=== PATIENT | female | born 1965 | race Caucasian/White ===

== ENCOUNTER → 2023-06-10 08:00 | Outpatient (BNVA) | payer BC, SELFPAY | PROVIDERS: PCP Family Medicine Adult Medicine; Visit Provider Family Medicine Adult Medicine | DX: M81.0 Age-related osteoporosis without current pathological fracture (principal); E11.69 Type 2 diabetes mellitus with other specified complication; E78.5 Hyperlipidemia, unspecified; N95.1 Menopausal and female climacteric states; F32.A Depression, unspecified; I15.2 Hypertension secondary to endocrine disorders | CPT/HCPCS: 80053; 80061; 83036; 84443; 85025 ==

== ENCOUNTER → 2023-11-12 15:31 | Outpatient (BNVA) | payer BC, MEDICAID, SELFPAY | PROVIDERS: PCP Family Medicine Adult Medicine | DX: M19.041 Primary osteoarthritis, right hand (principal) | CPT/HCPCS: 73130 ==

== ENCOUNTER → 2023-12-21 14:17 | Outpatient (BNVA) | payer BC, MEDICAID, SELFPAY | PROVIDERS: PCP Family Medicine Adult Medicine; Visit Provider Nurse Practitioner Family | DX: M19.071 Primary osteoarthritis, right ankle and foot (principal); M25.774 Osteophyte, right foot | CPT/HCPCS: 73630 ==

== ENCOUNTER 2024-01-14 14:48 | Outpatient (CLI) | payer BC, MEDICAID, SELFPAY ==
--- NOTE | 2024-01-14 16:15 | USCV_ITS ---
Ricardo Farida Age: 58 Gender: F : 1965 Exam Date: 01/14/2024 15:17 Ordering Phys: Maria D Guan DO Technologist: CT [place]am [place] [facility] [place]: Risk Factors: Previous Vascular Surgery: RIGHT LEFT BP: 129.0 / 0.00 BP: 133.0/ 89.00 0 0 Waveform Velocity (cm/s) Velocity (cm/s) Waveform Triphasic 123.8 Iliac Prox Triphasic 121.7 Iliac Mid Triphasic 113.0 Iliac Distal Triphasic 107.0 MANAGER SEMICONDUCTOR Triphasic 104.0 SFA Prox Triphasic 92.0 SFA Mid Triphasic 73.0 SFA Dist Triphasic 40.0 POP Triphasic 46.0 BUILDING AND GROUNDS SUPERVISOR Triphasic 39.0 DPA 1.0 ARTIE FINDINGS Resting ARTIE 1.0 on the right side. Minimal thickening in the femoral and popliteal artery on the right side. Normal arterial Doppler waveforms and velocities. CONCLUSIONS 1. Normal resting ARTIE on the right side suggesting no significant arterial obstruction 2. Intimal thickening in the femoral and popliteal artery on the right side. No unstable lesions. Dr Tl Cruz MD [facility] (Electronically Signed) Final Date: 14 January 2024 18:30 S
== END 2024-01-14 14:49 | disposition home or self-care (01) ==
LOC: RAD 14:51
PROVIDERS: PCP Family Medicine Adult Medicine; Visit Provider Emergency Medicine
DX: E11.621 Type 2 diabetes mellitus with foot ulcer (principal); I70.201 Unspecified atherosclerosis of native arteries of extremities, right leg; L97.519 Non-pressure chronic ulcer of other part of right foot with unspecified severity
CPT/HCPCS: 93926

== ENCOUNTER → 2024-07-26 14:55 | Outpatient (BNVA) | payer BC, MEDICAID, SELFPAY | PROVIDERS: Family Provider Family Medicine; PCP Family Medicine; Visit Provider Family Medicine | DX: I15.2 Hypertension secondary to endocrine disorders (principal); E11.69 Type 2 diabetes mellitus with other specified complication; E78.5 Hyperlipidemia, unspecified; E11.8 Type 2 diabetes mellitus with unspecified complications; E03.9 Hypothyroidism, unspecified; M81.0 Age-related osteoporosis without current pathological fracture | CPT/HCPCS: 80053; 80061; 82043; 82306; 83036; 84439; 84443; 85025 ==

== ENCOUNTER 2024-08-25 13:40 | Inpatient (IN) | payer BC, SELFPAY ==
[2024-08-25 13:41] VITALS: BP 107/58; PULSE 98; RESP 16; TEMP 36.8; O2SAT 97; BMI 23.8
--- NOTE | 2024-08-25 13:43 | XRR_ITS ---
PROCEDURE INFORMATION: Exam: XR Chest Exam date and time: 08/25/2024 2:05 PM Age: 59 years old Clinical indication: Other: Weakness TECHNIQUE: Imaging protocol: Radiologic exam of the chest. Views: 1 view. COMPARISON: No relevant prior studies available. FINDINGS: Lungs: The lungs are incompletely inflated. No focal infiltrates. Pleural spaces: No effusion or pneumothorax. Heart/Mediastinum: Heart size is normal. Mediastinum is widened. Bones/joints: Unremarkable. XR/XR chest 1V portable [id number] IMPRESSION: 1. Mediastinal widening. The appearance could represent a tortuous, ectatic proximal aorta or mediastinal mass. Chest CT evaluation is recommended. 2. No other acute disease identified.
--- NOTE | 2024-08-25 13:46 | ED_ITS ---
HPI - Weakness 2 General: Chief complaint: Weakness Stated complaint: Weakness Time Seen by Provider: 08/25/24 13:40 History of Present Illness: 59-year-old female with a history of MGU S, blindness, hypothyroidism, hyperlipidemia, type 2 diabetes, diabetic neuropathy and hypertension who presents the emergency room by ambulance with weakness. She says she went to her doctor 3 days ago. After which she had an episode of vomiting and then since then she had exertional weakness. She says she can walk about a few steps and then she becomes extremely weak. She has no other complaints. She is having no abdominal pain. No further nausea or vomiting. No chest pain. No altered mental status. No focal motor deficits. No fevers. No cough. Related Data Home Medications ?Medication ?Instructions ?Recorded ?Confirmed insulin glargine 100 unit/mL (3 See Rx Instructions .R oute .COMPLEX 07/26/24 08/25/24 mL) subcutaneous pen (Lantus Solostar U-100 Insulin) alendronate 70 mg tablet 70 mg PO Q7D 08/25/24 insulin lispro 100 unit/mL See Rx Instructions .Route .COMPLEX 08/25/24 08/25/24 subcutaneous pen metformin 500 mg tablet,extended 1,000 mg PO BID 08/2508/25/24 release 24 hr venlafaxine 75 mg capsule,extended 75 mg PO QAM 08/25/24 release 24 hr Previous Rx's ?Medication ?Instructions ?Recorded glucagon HCl 1 mg solution for 1 mg SUBCUT Q20M PRN hy poglycemia 03/12/23 injection (Glucagon (HCl) #3 ea Emergency Kit) atorvastatin 10 mg tablet 10 mg PO DAILY #30 tabs 07/11 08/04 dulaglutide 4.5 mg/0.5 mL 4.5 mg (0.5 mL) SUBCUT .qwk #2 mL 07/26/24 subcutaneous [facility] gabapentin 100 mg capsule 100 mg PO TID #90 caps 07/26 levothyroxine 50 mcg tablet 50 mcg PO DAILY #30 tabs 0 07/26/24 loratadine 10 mg tablet 10 mg PO DAILY #30 tabs 07/11 08/04 losartan 100 mg tablet 100 mg PO DAILY #30 tabs quetiapine 50 mg tablet 50 mg PO DAILY #30 tabs 07/11 08/04 ergocalciferol (vitamin D2) 1,250 1,250 mcg PO .qwk #4 caps 07/29/24 mcg (50,000 unit) capsule Allergies Allergy/AdvReac Type Severity Reaction Status Date / Time No Known Allergies Allergy Verified 07/26/24 14:13 Review of Systems 2 Narrative: Constitutional symptoms: Negative except as documented in HPI. Skin symptoms: Negative except as documented in HPI. Eye symptoms: Negative except as documented in HPI. ENMT symptoms: Negative except as documented in HPI. Respiratory symptoms: Negative except as documented in HPI. Cardiovascular symptoms: Negative except as documented in HPI. Gastrointestinal symptoms: Negative except as documented in HPI. Genitourinary symptoms: Negative except as documented in HPI. Musculoskeletal symptoms: Negative except as documented in HPI. Neurologic symptoms: Negative except as documented in HPI. Psychiatric symptoms: Negative except as documented in HPI. Endocrine symptoms: Negative except as documented in HPI. PFSH ED 2 PFSH: Medical History (Updated 08/25/24 @ 16:27 by Latonia Angulo MD) MGUS (monoclonal gammopathy of unknown significance) per [facility] notes Contusion of right breast, initial encounter DJD (degenerative joint disease) Right hand pain Hypothyroidism (acquired) Fracture of neck of left femur 05/13/2022 tripped ground level/low trauma fall with Lt Hip Fx [facility] 07/11/2022 L-spine T-score q.t, Z-score 2.6; Rt Femur neck T -1.8, Z 0.2, Hx of left femoral neck fracture Blindness of both eyes DM, Hx retinal detachment, preretinal fibrosis, Vitamin D deficiency 10/03/2022 Vit D total 23 (30-100) Overactive bladder Postmenopausal disorder Hyperlipidemia associated with type 2 diabetes mellitus Anxiety and depression Allergic rhinitis due to allergen Diabetic neuropathy Hypertension 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, 10/03/2022 A1C 8.9; Goes to [facility] Endocrinology Surgical History (Updated 07/29/24 @ 14:58 by Mary Anne Garcia MD) History of hip surgery left juan Hx of colonoscopy done at [facility]--requesting records History of delivery Family History Father Heart disease Mother Diabetes Social History Smoking and tobacco/nicotine status: never used tobacco/nicotine Alcohol intake: never Substance/Drug Use: never Caregiver/support person: Yes Household members: spouse Marital status: Number of children: 1 Highest education level completed: High School Graduate Current occupational status: disabled Previous occupational history: housework only Physical Exam 2 Narrative: EXAM NARRATIVE: General: Alert, no acute distress. Skin: Warm, dry. Head: Normocephalic, atraumatic. Neck: Supple, trachea midline. Eye: Patient is blind Ears, nose, mouth and throat: mucosa moist. Cardiovascular: Regular, Normal peripheral perfusion. Respiratory: Lungs are clear to auscultation, respirations are non-labored, breath sounds are equal, Symmetrical chest wall expansion. Gastrointestinal: Soft, Nontender, Non distended Musculoskeletal: Normal ROM, no deformity. Neurological: Alert and oriented, No focal neurological deficit observed. Psychiatric: Cooperative, appropriate mood & affect. Course 2 Vital Signs: Vital signs: Vital Signs Temperature 98.2 F 08/25/24 13:41 Pulse Rate 93 08/25/24 15:02 Respiratory Rate 16 08/25/24 15:02 Blood Pressure 110/59 08/25/24 15:02 Pulse Oximetry 94 08/25/24 15:02 Oxygen Delivery Me thod Room Air 08/25/24 13:41 MDM - Weakness Medical Decision Making Medical decision making: Differential diagnosis for patient presenting with generalized weakness including but not limited to and based on the above HPI, review of systems and physical exam: Sepsis. Dehydration. Renal failure. Electrolyte abnormalities. Anemia. Congestive heart failure. Hypotension. Coronary syndrome. Hepatitis. Cirrhosis. Infections such as pneumonia, urinary tract infection, [place]ne illness, Cellulitis, Viral infections including influenza and Covid-19. Workup: labwork and lab/exam driven imaging ordered to evaluate, rule in and rule out above pathologies. EKG: Time 1403. Rate 96. Normal sinus rhythm, No ST-T changes, no ectopy, normal SD & QRS intervals, This was reviewed and interpreted by myself the ER physician at 1408 Chest x-ray: No acute process. No infiltrate. No pneumothorax. This was reviewed and interpreted by myself the emergency room physician. I also reviewed the radiology report. Lab Review: Laboratory results were reviewed and interpreted by myself the emergency room physician. No leukocytosis. No anemia. Renal function is quite elevated over baseline at 82 and 2.3. 4+ bacteria in the urine with no other signs of infection. I am giving Rocephin CT of the chest abdomen and pelvis without contrast: Abnormal mediastinum on chest x-ray was not seen on CT scan. Mildly dilated bile ducts but no signs of biliary obstruction or cholangitis. Lactic acid was negative I reviewed the patient's medical record. Reexamination: I spoke with her who says she has actually been throwing up for 3 days now. Patient said she just threw up once. Vitals remained stable. She has had no focal motor deficits. She does not seem overtly confused. Consultation: I spoke with Dr. Brunson who is on-call for the hospitalist service who agrees to admission. Assessment and plan: Renal failure Dehydration ?2 L normal saline bolus in the emergency room. Rocephin IV. -I discussed the patient with the hospitalist on-call who is admitting the patient. - Discussed findings and plan with patient. Answered any questions. - All laboratory values were reviewed and interpreted personally by myself, the ER physician - All imaging was reviewed and interpreted personally by myself, the ER physician. - Evaluation and treatment of this problem were appropriate in the emergency setting Lab Data 08/25/24 14:06 08/25/24 14:06 Radiology Impressions Chest X-Ray 08/25/24 13:43 IMPRESSION: 1. Mediastinal widening. The appearance could represent a tortuous, ectatic proximal aorta or mediastinal mass. Chest CT evaluation is recommended. 2. No other acute disease identified. Chest/Abdomen/Pelvis CT 08/25/24 14:42 IMPRESSION: 1. No evidence for mediastinal mass. 2. No acute disease in the thorax. 3. Coronary artery calcifications are present. IMPRESSION: 1. Probable gallbladder sludge. 2. No other acute disease in the abdomen or pelvis. Laboratory Results WBC 6.14 10^3/uL (3.29-11.43) 08/25/24 14:06 RBC 4.39 10^6/uL (3.85-5.65) 08/25/24 14:06 Hgb 12.80 g/dL (11.27-16.99) 08/25/24 14:06 Hct 38.6 % (36-47) 08/25/24 14:06 MCV 87.9 fl (85-98) 08/25/24 14:06 MCH 29.2 pg (27-33) 08/25/24 14:06 MCHC 33.2 g/dL (30-55) 08/25/24 14:06 RDW 12.8 % (12.1-15.1) 08/25/24 14:06 Plt Count 312 10^3/cmm (157-399) 08/25/24 14:06 MPV 11.6 fL (7.4-10.4) H 08/25/24 14:06 Neut % (Auto) 67.1 % 08/25/24 14:06 Lymph % (Auto) 22.5 % 08/25/24 14:06 [place] % (Auto) 8.6 % 08/25/24 14:06 Eos % (Auto) 0.5 % 08/25/24 14:06 Baso % (Auto) 0.8 % 08/25/24 14:06 Neut # (Auto) 4.12 10^3/uL (1.8-7.7) 08/25/24 14:06 Lymph # (Auto) 1.4 10^3/uL (0.8-4.8) 08/25/24 14:06 [place] # (Auto) 0.5 10^3/uL (0.2-0.9) 08/25/24 14:06 Eos # (Auto) 0.0 10^3/uL (0.0-0.8) 08/25/24 14:06 Baso # (Auto) 0.1 10^3/uL (0.0-0.1) 08/25/24 14:06 Nucleated RBC % (auto) 0 % 08/25/24 14:06 Nucleated RBCs # 0.0 /100WBC 08/25/24 14:06 Sodium 136 mmol/L (136-145) 08/25/24 14:06 Potassium 5.4 mmol/L (3.5-5.1) H 08/25/24 14:06 Chloride 97 mmol/L (98-107) L 08/25/24 14:06 Carbon Dioxide 23 mmol/L (22-29) 08/25/24 14:06 Anion Gap 21.4 (5-19) H 08/25/24 14:06 BUN 82 mg/dL (8-23) H* D 08/25/24 14:06 Creatinine 2.3 mg/dL (0.5-0.9) H 08/25/24 14:06 GFR Calculation 21.6 mL/min (90-130) L 08/25/24 14:06 Glucose 191 mg/dL (65-115) H 08/25/24 14:06 Calculated Osmolality 312 mOsm/kg (285-295) H 08/25/24 14:06 Lactic Acid 1.5 mmol/L (0.5-2.2) 08/25/24 14:06 Calcium 9.5 mg/dL (8.5-10.5) 08/25/24 14:06 Total Bilirubin 0.4 mg/dL (0.15-1.2) 08/25/24 14:06 AST 9 U/L (0-32) 08/25/24 14:06 ALT < 5 U/L (0-33) 08/25/24 14:06 Alkaline Phosphatase 97 U/L (35-105) 08/25/24 14:06 Troponin T Baseline 13 ng/L (0-10) H 08/25/24 14:06 Total Protein 7.0 g/dL (6.6-8.7) 08/25/24 14:06 Albumin 4.5 g/dL (3.5-5.2) 08/25/24 14:06 Globulin 2.5 g/dL (1.3-4.6) 08/25/24 14:06 Urine Color Yellow (Yellow) 08/25/24 14:00 Urine Appearance Clear (CLEAR) 08/25/24 14:00 Urine pH 5.0 (5-7) 08/25/24 14:00 Ur Specific [place] 1.021 (1.005-1.030) 08/25/24 14:00 Urine Protein 1+ (Negative) A 08/25/24 14:00 Urine Glucose (UA) 3+ (Normal) H 08/25/24 14:00 Urine Ketones 1+ (Negative) H 08/25/24 14:00 Urine Blood Negative (Negative) 08/25/24 14:00 Urine Nitrate Negative (Negative) 08/25/24 14:00 Urine Bilirubin Negative (Negative) 08/25/24 14:00 Urine Urobilinogen 1.0 mg/dL (Negative) 08/25/24 14:00 Ur Leukocyte Esterase Negative (Negative) 08/25/24 14:00 Urine RBC 0-2 /hpf (0-2) 08/25/24 14:00 Urine WBC 0-5 /hpf (0-5) 08/25/24 14:00 Ur Squamous Epith Cells 0-5 /hpf (0-5) 08/25/24 14:00 Amorphous Sediment Not Reportable 08/25/24 14:00 Urine Bacteria 3+ /hpf (NONE) H 08/25/24 14:00 Hyaline Casts 27.69 /lpf 08/25/24 14:00 Influenza A (PCR) Negative (Negative) 08/25/24 14:16 Influenza Type B (PCR) Negative (Negative) 08/25/24 14:16 RSV (PCR) Negative (Negative) 08/25/24 14:16 SARS-CoV-2 (PCR) Negative (Negative) 08/25/24 14:16 All radiology interpretation(s) finalized by discharge Discharge Plan Discharge Patient Disposition: Admitted As Inpatient Clinical Impression: Renal failure, Dehydration Condition: Stable Coding Level of Care Code ED Engine Watchman for Dayanara Fontento
--- NOTE | 2024-08-25 14:03 | ECG_ITS ---
[facility] Date: 2024[facility]25 Pat Name: Farida Silva Department: Room: Gender: Female Regional Account Executive: : 1965 Requested By: Latonia Daigle Order Number: [id number] Vanessa MD: Tl Cruz M.D. Measurements Intervals [place] Rate: 96 P: 59 [place]: 133 QRS: 5 QRSD: 83 T: 64 QT: 334 QTc: 423 Interpretive Statements SINUS RHYTHM No previous ECG available for comparison Electronically Signed On 08-25-2024 16:40:36 CDT by Tl Cruz M.D. [email or web address]
[2024-08-25 14:14] LABS: Glucose Urine UA 3+ (Normal); Nitrate Urine Negative (Negative); Specific Gravity, Urine 1.021 (1.005-1.030)
[2024-08-25 14:20] LABS: Hematocrit 38.6 % (36-47); Hemoglobin 12.80 g/dL (11.27-16.99); Mean Corpuscular HGB Conc 33.2 g/dL (30-55); Mean Corpuscular Hemoglobin 29.2 pg (27-33); Mean Corpuscular Volume 87.9 fl (85-98); Nucleated Red Blood Cells % 0 %; Platelet Count 312 10^3/cmm (157-399); Red Blood Count 4.39 10^6/uL (3.85-5.65); White Blood Count 6.14 10^3/uL (3.29-11.43)
[2024-08-25 14:30] LABS: Alanine Aminotransferase < 5 U/L (0-33); Albumin Level 4.5 g/dL (3.5-5.2); Alkaline Phosphatase 97 U/L (35-105); Anion Gap 21.4 (5-19); Aspartate Amino Transferase 9 U/L (0-32); Calcium 9.5 mg/dL (8.5-10.5); Carbon Dioxide 23 mmol/L (22-29); Chloride 97 mmol/L (98-107); Creatinine Clr Calc Pharmacy 26.5013; Globulin 2.5 g/dL (1.3-4.6); Glucose 191 mg/dL (65-115); Osmolality Calculated 312 mOsm/kg (285-295); Potassium 5.4 mmol/L (3.5-5.1); Sodium 136 mmol/L (136-145); Total Protein 7.0 g/dL (6.6-8.7)
[2024-08-25 14:31] LABS: Lactic Sepsis W/Reflex 1.5 mmol/L (0.5-2.2); Troponin(5th) Baseline 13 ng/L (0-10)
[2024-08-25 14:36] LABS: Blood Urea Nitrogen 82 mg/dL (8-23)
--- NOTE | 2024-08-25 14:42 | CTR_ITS ---
PROCEDURE INFORMATION: Exam: CT Chest Without Contrast; Diagnostic Exam date and time: 08/25/2024 3:24 PM Age: 59 years old Clinical indication: Condition or disease; Other: Renal failure; Other: Abnormal cxr; Prior surgery; Surgery date: 6+ months; Surgery type: Partial hysterectomy, left hip; Additional info: Renal failure, abnormal chest xray, R/O obstructive uropathy per hospitalist, TECHNIQUE: Imaging protocol: Diagnostic computed tomography of the chest without contrast. Radiation optimization: All CT scans at this facility use at least one of these dose optimization techniques: automated exposure control; mA and/or kV adjustment per patient size (includes targeted exams where dose is matched to clinical indication); or iterative reconstruction. COMPARISON: CR XR chest 1V portable [id number] 08/25/2024 2:05 PM RADIATION DOSE METRICS: Total DLP (mGy-cm): 725.27 FINDINGS: Lungs: Small amount of atelectasis in the right middle lobe, lingula and posterior lower lobes. Pleural spaces: Unremarkable. No pneumothorax. No pleural effusion. Heart: Heart size is normal. Coronary arteries: Coronary artery calcifications are present. Mediastinal space: No mediastinal mass or rich enlargement. The esophagus contains gas and fluid. Lymph nodes: Unremarkable. No enlarged lymph nodes. Vasculature: Ascending aorta caliber is within normal limits. Pulmonary artery size is normal. A small amount of gas in the main pulmonary artery relates to inadvertent injection during IV placement. Bones/joints: Degenerative disc disease is present in the thoracic spine. No suspicious osseous lesions. Soft tissues: Unremarkable. PROCEDURE INFORMATION: Exam: CT Abdomen And Pelvis Without Contrast Exam date and time: 08/25/2024 3:24 PM Age: 59 years old Clinical indication: Condition or disease; Other: Renal failure; Other: Abnormal cxr; Prior surgery; Surgery date: 6+ months; Surgery type: Partial hysterectomy, left hip; Additional info: Renal failure, abnormal chest xray, R/O obstructive uropathy per hospitalist, TECHNIQUE: Imaging protocol: Computed tomography of the abdomen and pelvis without contrast. Radiation optimization: All CT scans at this facility use at least one of these dose optimization techniques: automated exposure control; mA and/or kV adjustment per patient size (includes targeted exams where dose is matched to clinical indication); or iterative reconstruction. COMPARISON: CR XR chest 1V portable [id number] 08/25/2024 2:05 PM RADIATION DOSE METRICS: Total DLP (mGy-cm): 725.27 FINDINGS: Liver: Normal. No mass. Gallbladder and biliary ducts: Slight relative increased density in the dependent portion of the gallbladder suggests sludge. No calcified stones. No pericholecystic inflammatory changes. No ductal dilatation. Pancreas: Normal. No ductal dilation. Spleen: Normal. No splenomegaly. Adrenal glands: Normal. No mass. Kidneys and ureters: Normal. No hydronephrosis. Stomach and bowel: Unremarkable. No obstruction. No mucosal thickening. Appendix: No evidence of appendicitis. Intraperitoneal space: Unremarkable. No free air. No significant fluid collection. Vasculature: Unremarkable. No abdominal aortic aneurysm. Lymph nodes: Unremarkable. No enlarged lymph nodes. Urinary bladder: Unremarkable as visualized. Reproductive: Vascular calcification projects around the uterus periphery. No uterus mass or adnexal mass. Bones/joints: Unremarkable. No acute fracture. Previous left hip replacement. Soft tissues: Unremarkable. CT/[place] [id number] IMPRESSION: 1. No evidence for mediastinal mass. 2. No acute disease in the thorax. 3. Coronary artery calcifications are present. IMPRESSION: 1. Probable gallbladder sludge. 2. No other acute disease in the abdomen or pelvis.
[2024-08-25 14:59] LABS: Respiratory Syncytial Virus Ce NEGATIVE (Negative); SARS-CoV-2 PCR NEGATIVE (Negative)
[2024-08-25] MEDS: cefTRIAXone 1,000 mg SDV 1000 MG IVP (15:01)
[2024-08-25 15:02] VITALS: BP 110/59; PULSE 93; RESP 16; O2SAT 94
--- NOTE | 2024-08-25 16:08 | ECG_ITS ---
[facility] Date: 2024-08-25 Pat Name: Farida Silva Department: Room: Gender: Female Film Crew Member: : 1965 Requested By: Latonia Daigle Order Number: [id number] Vanessa MD: Tl Cruz M.D. Measurements Intervals [place] Rate: 89 P: 57 ND: 136 QRS: -4 QRSD: 85 T: 67 QT: 357 QTc: 435 Interpretive Statements SINUS RHYTHM NONSPECIFIC T-WAVE ABNORMALITY Compared to ECG 08/25/2024 14:03:09 T-wave abnormality now present Electronically Signed On 08-25-2024 16:47:59 CDT by Tl Cruz M.D. [email or web address]
--- NOTE | 2024-08-25 16:48 | P.HP_ITS ---
Providers/Chief Complaint 2 Primary Care Provider: Mary Anne Garcia MD Chief Complaint: Weakness History of Present Illness Farida Silva is a 59 year old female with past medical history of diabetes mellitus, peripheral neuropathy, hypothyroidism, depression, hyperlipidemia, hypertension who presented to the hospital today for complaint of feeling very weak. She states that she has not had any urine output since yesterday. She started vomiting suddenly 2 days ago she states and has worsened. Has not vomited since yesterday however still feels very weak. Patient is legally blind and is accompanied by her . Has a history of retinal detachment and diabetic retinopathy leading to blindness. She says she went to her doctor on and thereafter started experiencing nausea vomiting. No clear trigger. Did not eat out, denies eating canned food or visiting a restaurant. Says everything was normal at home. Denies chest pain shortness of breath abdominal pain diarrhea. Has been anuric since yesterday. Patient is legally blind and will require assistance with feeding. Medications/Allergies Home Medications ?Medication ?Instructions ?Recorded ?Confirmed ?Last Taken ?Type glucagon HCl 1 mg solution for 1 mg SUBCUT Q20M PRN hy poglycemia 03/12/23 08/25/24 Unknown Rx injection (Glucagon (HCl) #3 ea Emergency Kit) atorvastatin 10 mg tablet 10 mg PO DAILY #30 tabs 07/1108/25/24 08/24/24 Rx dulaglutide 4.5 mg/0.5 mL 4.5 mg (0.5 mL) SUBCUT .qwk #2 mL 07/26/24 08/25/24 Unknown Rx subcutaneous pen injector (Trulicity) gabapentin 100 mg capsule 100 mg PO TID #90 caps 07/2608/25/24 08/25/24 Rx insulin glargine 100 unit/mL (3 See Rx Instructions .R oute .COMPLEX 07/26/24 08/25/24 08/25/24 History mL) subcutaneous pen (Lantus Solostar U-100 Insulin) levothyroxine 50 mcg tablet 50 mcg PO DAILY #30 tabs 0 07/26/24 08/25/24 08/25/24 Rx loratadine 10 mg tablet 10 mg PO DAILY #30 tabs 06/1 6/25 07/16/25 07/16/25 Rx losartan 100 mg tablet 100 mg PO DAILY #30 tabs 08/25/24 08/25/24 Rx quetiapine 50 mg tablet 50 mg PO DAILY #30 tabs 07/1108/25/24 08/25/24 Rx ergocalciferol (vitamin D2) 1,250 1,250 mcg PO .qwk #4 caps 07/29/24 08/25/24 Unknown Rx mcg (50,000 unit) capsule alendronate 70 mg tablet 70 mg PO Q7D 08/25/2408/20/24 History insulin lispro 100 unit/mL See Rx Instructions .Route .COMPLEX 08/25/24 08/25/24 08/25/24 History subcutaneous pen metformin 500 mg tablet,extended 1,000 mg PO BID 08/2508/25/24 08/25/24 History release 24 hr venlafaxine 75 mg capsule,extended 75 mg PO QAM 08/25/24 08/25/24 History release 24 hr Allergies Allergy/AdvReac Type Severity Reaction Status Date / Time No Known Allergies Allergy Verified 07/26/24 14:13 PFSH Acute 2 PFSH: Medical History (Updated 08/25/24 @ 18:06 by Giulia Brunson MD) MGUS (monoclonal gammopathy of unknown significance) per [facility] notes Contusion of right breast, initial encounter DJD (degenerative joint disease) Right hand pain Hypothyroidism (acquired) Fracture of neck of left femur 05/13/2022 tripped ground level/low trauma fall with Lt Hip Fx Osteoporosis [facility] - [facility] 07/11/2022 L-spine T-score q.t, Z-score 2.6; Rt Femur neck T -1.8, Z 0.2, Hx of left femoral neck fracture Blindness of both eyes DM, Hx retinal detachment, preretinal fibrosis, Vitamin D deficiency 10/03/2022 Vit D total 23 (30-100) Overactive bladder Postmenopausal disorder Hyperlipidemia associated with type 2 diabetes mellitus Anxiety and depression Allergic rhinitis due to allergen Diabetic neuropathy Hypertension 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, 10/03/2022 A1C 8.9; Goes to [facility] Endocrinology Surgical History (Updated 07/29/24 @ 14:58 by Mary Anne Garcia MD) History of hip surgery left juan Hx of colonoscopy done at [facility]--requesting records History of delivery Family History Father Heart disease Mother Diabetes Social History Smoking and tobacco/nicotine status: never used tobacco/nicotine Alcohol intake: never Substance/Drug Use: never Caregiver/support person: Yes Household members: spouse Marital status: Number of children: 1 Highest education level completed: High School Graduate Current occupational status: disabled Previous occupational history: housework only Vitals/I&O/Wt Last Vital Signs Temp 98.2 F 08/25/24 13:41 Pulse 93 08/25/24 15:02 Resp 16 08/25/24 15:02 BP 110/59 08/25/24 15:02 Pulse Ox 94 08/25/24 15:02 O2 Del Method Room Air 08/25/24 13:41 Weight last 48 hrs Weight 68.946 kg Physical Exam 2 Narrative: General: Alert oriented x3, patient seen laying in bed appearing comfortable at this time. Patient appears quite dehydrated dry mucous membranes. HEENT: Normocephalic, atraumatic, EOMI, patient legally blind. Cardio: Regular rate rhythm, normal S1-S2, Respiratory: Clear to auscultation bilaterally no wheezes no rhonchi GI: Abdomen soft, nontender bowel sounds + Extremities: No edema bilateral lower extremity Data 08/25/24 14:06 08/25/24 14:06 Micro: Microbiology 08/25/24 14:00 Blood Culture - Preliminary Blood SPECIMEN COLLECTED 08/25/24 14:06 Blood Culture - Preliminary Blood SPECIMEN COLLECTED A&P Assessment and plan 1. Anxiety and depression: 2. Hypertension: 3. Hyperlipidemia associated with type 2 diabetes mellitus: 4. Hypothyroidism (acquired): 5. Blindness of both eyes: 6. Dehydration: 7. Acute renal failure, unspecified acute renal failure type: 8. MGUS (monoclonal gammopathy of unknown significance): 9. Diabetic neuropathy: 10. High anion gap metabolic acidosis: 11. Hyperkalemia: Plan: #Acute renal failure #Anuric #Diabetes mellitus insulin-dependent #Nausea vomiting #Hyperlipidemia #Hypothyroidism #Anxiety depression #Peripheral neuropathy #MGUS -Patient is status post 2 normal saline bolus ? Continue on LR at 125 cc/h ? Consult nephrology ? Creatinine 2.3, BUN 83, potassium 5.4 ? Patient anuric. ? We will administer IV fluids and see if she responds to fluid and is able to urinate. ? Delta troponin at 2 hours -3.56. ? UA positive for 3+ bacteria, 1+ protein, 3+ glucose 1+ ketones. ? Will check for serum ketones. There may be possibility of euglycemic DKA however patient is not on SGLT2. She is on a GLP-1 analog dulaglutide however. This may contribute to nausea vomiting. ? Will check ABG ? Anion gap elevated most likely secondary to renal failure. Bicarb 23. ? Potassium 5.4. ? Check TSH, SPEP, UPEP check MEREDITH, serum ketones, complement C3-C4, CPK, hepatitis profile, uric acid ? Check urine sodium ? Heparin SQ twice daily for DVT prophylaxis ? Continue quetiapine, venlafaxine, levothyroxine ? Hold off on insulin at this time secondary to renal failure status. ? Patient is at risk of hypoglycemia. ?Check stat ABG to assess for pH. - Nephrology consulted. Appreciate recommendations ? Place Lopez catheter for accurate output ? Patient does have a history of MGUS. Query myeloma crisis?. Nephrology has repeated labs. Full code DVT prophylaxis: Heparin SQ twice daily PDMP PDMP Reviewed: Not Reviewed Attestations 2 Medical Necessity Statement*: Greater than 2 midnight stay for management of acute renal failure. Diagnoses Anxiety and depression F41.9; F32.A Hypertension I10 Hyperlipidemia associated with type 2 diabetes mellitus E11.69; E78.5 Hypothyroidism (acquired) E03.9 Blindness of both eyes H54.3 Dehydration E86.0 Acute renal failure, unspecified acute renal failure type N17.9 Acute renal failure type: unspecified Renal failure chronicity: acute MGUS (monoclonal gammopathy of unknown significance) D47.2 Diabetic neuropathy E11.40 High anion gap metabolic acidosis E87.29 Hyperkalemia E87.5
[2024-08-25 16:59] LABS: Troponin 5 2HR 9.44 ng/L (0-10)
[2024-08-25 17:02] LABS: Troponin 5 2HR Delta -3.56 ABS# (0-10)
[2024-08-25 17:06] VITALS: BP 129/62; PULSE 89; RESP 22; O2SAT 98
[2024-08-25] MEDS: pantoprazole 40 mg SDV IVP (17:31)
--- NOTE | 2024-08-25 17:31 | PC.NURSE ---
maintenance fluids delayed d/t current fluid bolus infusing
--- NOTE | 2024-08-25 17:39 | PC.NURSE ---
pt spoke with nephrology via telecare @[id number]
--- NOTE | 2024-08-25 17:40 | PM.CONSULT ---
Providers/Reason For Consult Consulting Physician/Specialty*: Bertin Allen MD/telenephrology Reason for Consult*: ATA Requesting Physician: Giulia Brunson MD Attending Physician: Giulia Brunson MD Primary Care Provider: Mary Anne Garcia MD History of Present Illness History of Present Illness Farida Silva is a 59 year old female history of diabetes mellitus, hyperlipidemia and hypothyroidism, hypertension, anxiety depression. Patient is blind in both eyes. Patient per chart has a history history of a MGUS. Patient is here with nausea vomiting for 3 days. In the emergency room patient was found to have acute kidney injury. Patient has CT scan of chest abdomen and pelvis. Lungs had small amount of atelectasis in right middle lobe lingula and posterior lobes. She was found to have gallbladder sludge. She had normal kidneys. The patient had mild hypotension blood pressure 107/58. And renal is called to see the patient for acute kidney injury Review of Systems Narrative: Nausea vomiting weakness for a few days not able to eat. She is taking her medications including metformin and losartan and insulin. She has very poor vision or is legally blind. She is denying diarrhea. Medications/Allergies Home Medications ?Medication ?Instructions ?Recorded ?Confirmed ?Last Taken ?Type glucagon HCl 1 mg solution for 1 mg SUBCUT Q20M PRN hypoglycemia 03/12/23 08/25/24 Unknown Rx injection (Glucagon (HCl) #3 ea Emergency Kit) atorvastatin 10 mg tablet 10 mg PO DAILY #30 tabs 07/26/24 08/25/24 08/24/24 Rx dulaglutide 4.5 mg/0.5 mL 4.5 mg (0.5 mL) SUBCUT .qwk #2 mL 07/26/24 08/25/24 Unknown Rx subcutaneous pen injector (Trulicity) gabapentin 100 mg capsule 100 mg PO TID #90 caps 07/26/24 08/25/24 08/25/24 Rx insulin glargine 100 unit/mL (3 See Rx Instructions .Route .COMPLEX 07/26/24 08/25/24 08/25/24 History mL) subcutaneous pen (Lantus Solostar U-100 Insulin) levothyroxine 50 mcg tablet 50 mcg PO DAILY #30 tabs 07/26/24 08/25/24 08/25/24 Rx loratadine 10 mg tablet 10 mg PO DAILY #30 tabs 07/26/24 08/25/24 08/25/24 Rx losartan 100 mg tablet 100 mg PO DAILY #30 tabs 07/26/24 08/25/24 08/25/24 Rx quetiapine 50 mg tablet 50 mg PO DAILY #30 tabs 07/26/24 08/25/24 08/25/24 Rx ergocalciferol (vitamin D2) 1,250 1,250 mcg PO .qwk #4 caps 07/29/24 08/25/24 Unknown Rx mcg (50,000 unit) capsule alendronate 70 mg tablet 70 mg PO Q7D 08/25/24 08/25/24 08/20/24 History insulin lispro 100 unit/mL See Rx Instructions .Route .COMPLEX 08/25/24 08/25/24 08/25/24 History subcutaneous pen metformin 500 mg tablet,extended 1,000 mg PO BID 08/25/24 08/25/24 08/25/24 History release 24 hr venlafaxine 75 mg capsule,extended 75 mg PO QAM 08/25/24 08/25/24 08/25/24 History release 24 hr Allergies Allergy/AdvReac Type Severity Reaction Status Date / Time No Known Allergies Allergy Verified 07/26/24 14:13 Current Medications Generic Name Dose Route Start Last Admin Trade Name Nigelq PRN Reason Stop Dose Admin Pantoprazole Sodium 40 mg 08/25/24 17:00 08/25/24 17:31 Pantoprazole 40 Mg Sdv IVP 40 mg Q24H KADEN Administration PFSH Acute PFSH: Medical History (Updated 08/25/24 @ 17:46 by Bertin Allen MD) MGUS (monoclonal gammopathy of unknown significance) per [facility] notes Contusion of right breast, initial encounter DJD (degenerative joint disease) Right hand pain Hypothyroidism (acquired) Fracture of neck of left femur 05/13/2022 tripped ground level/low trauma fall with Lt Hip Fx Osteoporosis [facility] - [facility] 07/11/2022 L-spine T-score q.t, Z-score 2.6; Rt Femur neck T -1.8, Z 0.2, Hx of left femoral neck fracture Blindness of both eyes DM, Hx retinal detachment, preretinal fibrosis, Vitamin D deficiency 10/03/2022 Vit D total 23 (30-100) Overactive bladder Postmenopausal disorder Hyperlipidemia associated with type 2 diabetes mellitus Anxiety and depression Allergic rhinitis due to allergen Diabetic neuropathy Hypertension 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, 10/03/2022 A1C 8.9; Goes to [facility] Endocrinology Surgical History (Updated 07/29/24 @ 14:58 by Mary Anne Garcia MD) History of hip surgery left juan Hx of colonoscopy done at [facility]--requesting records History of delivery Family History Father Heart disease Mother Diabetes Social History Smoking and tobacco/nicotine status: never used tobacco/nicotine Alcohol intake: never Substance/Drug Use: never Caregiver/support person: Yes Household members: spouse Marital status: Number of children: 1 Highest education level completed: High School Graduate Current occupational status: disabled Previous occupational history: housework only Vitals/I&O/Wt Last Vital Signs Temp 98.2 F 08/25/24 13:41 Pulse 89 08/25/24 17:06 Resp 22 H 08/25/24 17:06 BP 129/62 08/25/24 17:06 Pulse Ox 98 08/25/24 17:06 O2 Del Method Room Air 08/25/24 13:41 Weight last 48 hrs Weight 68.946 kg Physical Exam Narrative: Vital signs noted. Currently normal. Patient is comfortable in bed no apparent distress. HEENT normocephalic atraumatic. Poor vision. Neck is supple no JVP. Lungs are clear to auscultation. Heart is regular no rubs or gallops. Abdomen is soft positive bowel sounds. Extremities no edema. Neuro awake alert oriented x 3. Data 08/25/24 14:06 08/25/24 14:06 Micro: Microbiology 08/25/24 14:00 Blood Culture - Preliminary Blood SPECIMEN COLLECTED 08/25/24 14:06 Blood Culture - Preliminary Blood SPECIMEN COLLECTED A&P Assessment and plan 1. Acute renal failure, unspecified acute renal failure type: 59-year-old lady with history of MGUS, blindness, hypothyroidism, hyperlipidemia, type 2 diabetes with diabetic neuropathy. Patient is here with nausea and vomiting and acute kidney injury. 1. Acute kidney injury-no hydronephrosis on CT scan. Baseline creatinine 0.6 mg/dL Urinalysis has a pH of 5, 1+ protein 3+ glucose 1+ ketones. Has 3+ urine bacteria. Patient has underlying urine microalbumin creatinine ratio 65 in July 2024. I am concerned for prerenal azotemia versus ATN. Will give IV fluids and monitor. Will send urine electrolytes. Will check CPK and check complements. Will stop ARB and metformin. 2. Uncontrolled diabetes. Treatment as per hospitalist. 3. Mild hyperkalemia we will monitor with treatment with IV fluids. 4. Anion gap of 16 with urine ketones positive will check an ABG. Patient's lactate is 1.5. Glucose 191 unlikely to be DKA unless she is on an SGLT2 inhibitor. We do not see any SGLT2 inhibitors on her medication list. Patient denies alcohol use. Evaluate for starvation ketoacidosis as she has been vomiting for 3 days. 5. History of MGUS will check serum protein electrophoresis immunofixation and free light chains. The pt was seen and examined with the aide of a RN using A/V equipment the pt consented to tele-health visit Plan: See above. PDMP PDMP Reviewed: Not Reviewed Consult Attestations Medical Necessity Statement: Nausea vomiting and acute kidney injury. Time Spent in Patient Care: Greater than 35 minutes (>than 50% of time spent in counselling and/or direct pt care on unit). Coding Level of Care Code Acute Code for Chg Fwd Diagnoses Acute renal failure, unspecified acute renal failure type N17.9 Renal failure chronicity: acute Acute renal failure type: unspecified
[2024-08-25 17:47] LABS: Procalcitonin 0.15 ng/mL (0-0.5)
[2024-08-25 17:52] VITALS: BP 117/60; PULSE 88; O2SAT 97
[2024-08-25 18:07] LABS: ABG PCO2 34.7 mmHg (35-45); ABG PH Result 7.38 (7.35-7.45); Alveolar-Arterial Oxygen Gradi 2.9 mmHg (5-10); Arterial Blood Gas Hematocrit 31.5 % (37-47); Blood Gas Operator Identificat GD; Blood Gas Sample Site Brachial, right; Blood Gas Sample Type Arterial; Carboxyhemoglobin 2.6 %THgb (0.4-20.1); Glucose Level-ABG 72.0 mg/dL (70-115); HCO3 ABG 20.5 mmol/L (22-26); Ionized Calcium Level - ABG 1.1 mmol/L (1.1-1.4); Methemoglobin 1.3 % (0.4-1.5); Oxygen Saturation ABG 95.8; PO2 ABG 83.1 mmHg (80.0-100.0); PO2 FiO2 Ratio Arterial Blood 395; Potassium Level - ABG 3.7 mmol/L (3.5-5.0); Sodium Level - ABG 142.0 mmol/L (131-143)
--- NOTE | 2024-08-25 18:12 | US_ITS ---
WS: [id number] Complete ABDOMINAL ULTRASOUND HISTORY: r/o gall bladder pathology COMPARISON: CT 08/25/2024 Liver: 14.3 cm in length. Normal size liver and echogenicity. No bile duct dilatation or mass. Portal Vein: Normal hepatopetal flow with monophasic waveform. Gallbladder: Normally distended gallbladder with no stones or wall thickening. CBD: 0.5 cm Pancreas: Normal size and echogenicity. Right kidney: 10.7 cm x 5.2 x 5.1 cm. Cortex:1.7 cm. Normal size kidney. Tiny cortical cyst. No solid mass. Left kidney: 11.3 cm x 6.1 cm x 6.0 cm. Cortex: 1.7 cm. Normal size and echogenicity. No hydronephrosis or mass. Spleen: 9.0 cm. Normal size and echogenicity. Aorta and IVC: Unremarkable abdominal aorta and IVC. US/US abdomen complete* [id number] Impression: 1. Negative gallbladder. No stones or sludge. 2. Normal common bile duct. 3. No renal obstruction. 4. Normal liver.
[2024-08-25] MEDS: heparin 5,000 unit/mL INJ 1 mL 5000 UNIT SUBCUT (18:20)
[2024-08-25 18:55] LABS: Uric Acid 13.2 mg/dL (2.4-5.7)
[2024-08-25 19:05] LABS: Thyroid Stimulating Hormone 1.42 uIU/mL (0.27-4.20)
[2024-08-25 19:36] VITALS: BP 145/74; PULSE 90; RESP 18; TEMP 36.4; O2SAT 95
--- NOTE | 2024-08-25 19:43 | ECG_ITS ---
[facility]24[facility]25 Pat Name: Farida Silva Department: Room: 271 Gender: Female System Programmer: : 1965 Requested By: Latonia Daigle Order Number: [id number] Reading MD: TIANA UNGER Measurements Intervals [place] Rate: 88 P: 49 MN: 120 QRS: -28 QRSD: 90 T: 75 QT: 372 QTc: 451 Interpretive Statements SINUS RHYTHM BORDERLINE LEFT AXIS DEVIATION [QRS AXIS < -20] NONSPECIFIC T-WAVE ABNORMALITY Compared to ECG 08/25/2024 16:08:06 No significant changes Electronically Signed On 08-28-2024 16:13:02 CDT by TIANA UNGER [email or web address]
[2024-08-25 22:20] LABS: Ketone (Acetest) Serum Negative (Negative)
[2024-08-25 22:23] LABS: Troponin 5 6HR 8.68 ng/L (0-10)
[2024-08-25 22:27] LABS: Troponin 5 6HR Delta -4.32 ng/L (0-12)
[2024-08-26] VITALS: BP 146/71; PULSE 92; RESP 16; TEMP 36.7; O2SAT 97
[2024-08-26 00:50] LABS: Glucose Urine UA Negative (Normal); Nitrate Urine Negative (Negative); Specific Gravity, Urine 1.014 (1.005-1.030)
[2024-08-26 01:01] LABS: Potassium, Radom Urine 16 mmol/L; Urine Random Chloride 141 mmol/L; Urine Random Sodium 135 mmol/L
[2024-08-26 04:00] VITALS: BP 125/67; PULSE 91; RESP 16; TEMP 36.4; O2SAT 95
[2024-08-26] MEDS: heparin 5,000 unit/mL INJ 1 mL 5000 UNIT SUBCUT ×2 (05:06→17:25)
[2024-08-26] MEDS: venlafaxine ER (24HR) 75 mg Capsule PO (05:06)
[2024-08-26 05:52] LABS: Hematocrit 33.3 % (36-47); Hemoglobin 10.90 g/dL (11.27-16.99); Mean Corpuscular HGB Conc 32.7 g/dL (30-55); Mean Corpuscular Hemoglobin 28.8 pg (27-33); Mean Corpuscular Volume 88.1 fl (85-98); Nucleated Red Blood Cells % 0 %; Platelet Count 234 10^3/cmm (157-399); Red Blood Count 3.78 10^6/uL (3.85-5.65); White Blood Count 4.06 10^3/uL (3.29-11.43)
[2024-08-26 06:15] LABS: Alanine Aminotransferase < 5 U/L (0-33); Albumin Level 3.6 g/dL (3.5-5.2); Alkaline Phosphatase 80 U/L (35-105); Anion Gap 17.7 (5-19); Aspartate Amino Transferase 9 U/L (0-32); Blood Urea Nitrogen 45 mg/dL (8-23); Calcium 8.4 mg/dL (8.5-10.5); Carbon Dioxide 23 mmol/L (22-29); Chloride 102 mmol/L (98-107); Creatinine Clr Calc Pharmacy 60.4388; Globulin 2.6 g/dL (1.3-4.6); Glucose 141 mg/dL (65-115); Magnesium 2.0 mg/dL (1.7-2.3); Osmolality Calculated 302 mOsm/kg (285-295); Potassium 3.7 mmol/L (3.5-5.1); Sodium 139 mmol/L (136-145); Total Protein 6.2 g/dL (6.6-8.7)
[2024-08-26 07:36] VITALS: BP 147/74; PULSE 88; RESP 18; TEMP 36.6; O2SAT 96
[2024-08-26] MEDS: ATORVASTATIN 10 MG TABLET PO (08:37)
--- NOTE | 2024-08-26 10:17 | P.PN_ITS ---
Subjective 2 Subjective: The patient was seen and examined. The patient had a Lopez catheter placed I believe she had a significant postvoid residual. Please ensure. Patient states she is feeling better. She has no nausea or vomiting she still remains weak. She has no diarrhea no headaches. Medications: Reviewed: Yes Medication Review Details: Current Medications Acetaminophen (Acetaminophen 325 Mg Tablet) 650 mg PO Q6H PRN PRN Reason: Mild/Mod Pain Or Temp >/= 101 Atorvastatin Calcium (Atorvastatin 10 Mg Tablet) 10 mg PO DAILY [facility] Last Admin: 08/26/24 08:37 Dose: 10 mg Glucagon (Glucagon 1 Mg/Ml Kit 1 Ml) 1 mg IM ONCE PRN; Protocol PRN Reason: Adult Acute Hypoglycemia Nursing Prot. Heparin Sodium (Porcine) (Heparin 5,000 Unit/Ml Inj 1 Ml) 5,000 unit SUBCUT Q12H [facility] Last Admin: 08/26/24 05:06 Dose: 5,000 unit Lactated Ringer's (Lactated Ringers) 1,000 mls @ 100 mls/hr IV .Q10H [facility] Last Admin: 08/26/24 05:05 Dose: 100 mls/hr Dextrose (D5w) 500 mls @ 0 mls/hr IV ONCE PRN; Protocol PRN Reason: Adult Acute Hypoglycemia Prot Dextrose (D10w) 125 mls @ 750 mls/hr IV PRN PRN; Protocol PRN Reason: Adult Acute Hypoglycemia Nursing Protocol Dextrose (D10w) 250 mls @ 1,000 mls/hr IV PRN PRN; Protocol PRN Reason: Adult Acute Hypoglycemia Nursing Protocol Levothyroxine Sodium (Levothyroxine 50 Mcg Tablet) 50 mcg PO DAILY [facility] Last Admin: 08/26/24 08:37 Dose: 50 mcg Ondansetron HCl (Ondansetron 2 Mg/Ml Sdv 2 Ml) 4 mg IVP Q8H PRN PRN Reason: vomiting, or N/V if npo Pantoprazole Sodium (Pantoprazole 40 Mg Sdv) 40 mg IVP Q24H [facility] Last Admin: 08/25/24 17:31 Dose: 40 mg Quetiapine Fumarate (Quetiapine 25 Mg Tablet) 50 mg PO BEDTIME [facility] Last Admin: 08/26/24 02:21 Dose: 50 mg Venlafaxine HCl (Venlafaxine Er (24hr) 75 Mg Capsule) 75 mg PO QAM [facility] Last Admin: 08/26/24 05:06 Dose: 75 mg Vitals/I&O/Wt Last Vital Signs Temp 97.9 F 08/26/24 07:36 Pulse 88 08/26/24 07:36 Resp 18 08/26/24 07:36 BP 147/74 08/26/24 07:36 Pulse Ox 96 08/26/24 07:36 O2 Del Method Room Air 08/26/24 07:36 08/25/24 08/26/24 08/26/24 22:59 06:59 14:59 Intake Total 2500 / 2500 900 / 3400 50 / 50 Output Total 900 / 900 1000 / 1900 Balance 1600 / 1600 -100 / 1500 50 / 50 Weight last 48 hrs Weight 67.585 kg Weight 68.946 kg Physical Exam 2 Narrative: Vital signs noted. Patient is comfortable in bed no apparent distress. HEENT normocephalic atraumatic. Poor vision. Neck is supple no JVP. Lungs are clear to auscultation. Heart is regular no rubs or gallops. Abdomen is soft positive bowel sounds. Extremities no edema. Neuro awake alert oriented x 3. Urinary Catheter Management: Lopez: Cath Placed During This Visit: yes Reason for Continuing Indwelling Catheter: Required Immobilization for Trauma or Surgery or Anesthesia Urinary Catheter Date of Insertion: 08/25/24 Urinary Catheter Time of Insertion: 20:20 Data 08/26/24 05:27 08/26/24 05:27 Micro: Microbiology 08/25/24 14:00 Blood Culture - Preliminary Blood SPECIMEN COLLECTED 08/25/24 14:06 Blood Culture - Preliminary Blood SPECIMEN COLLECTED A&P Assessment and plan 1. Acute renal failure, unspecified acute renal failure type: 59-year-old lady with history of MGUS, blindness, hypothyroidism, hyperlipidemia, type 2 diabetes with diabetic neuropathy. Patient is here with nausea and vomiting and acute kidney injury. 1. Acute kidney injury-no hydronephrosis on CT scan. Baseline creatinine 0.6 mg/dL Urinalysis has a pH of 5, 1+ protein 3+ glucose 1+ ketones. Has 3+ urine bacteria. Patient has underlying urine microalbumin creatinine ratio 65 in July 2024. Renal function improved. Likely prerenal azotemia as the patient did not have hydronephrosis on CT scan or renal ultrasound. Imaging of kidneys reviewed, on renal ultrasound, right kidney 10.7 cm left kidney 11.3 cm no hydronephrosis. Patient had an elevated urine sodium is consistent with ATN however she improved quickly with IV fluids Will stop ARB and metformin. Will DC IV fluids 2. Uncontrolled diabetes. Hemoglobin A1c was 9 last month Treatment as per hospitalist. 3. Mild hyperkalemia has improved potassium is now down to 3.7 4. Please note the patient had urinalysis with 1+ ketones on admission repeat had trace ketones. - However serum bicarbonate is 23. Yesterday she had a anion gap of 16 today she has an anion gap of 14 and serum albumin is 3.6. 5. History of MGUS will check serum protein electrophoresis immunofixation and free light chains. Follow-up repeat SPEP. As renal function improved this is unlikely to be amyloid or myeloma kidney The patient will need to have her Lopez catheter removed at that time please do a trial of void and ensure that she is urinating well. And renal function is stable. The pt was seen and examined with the aide of a RN using A/V equipment the pt consented to tele-health visit renal will see PRN Plan: See above. PDMP PDMP Reviewed: Not Reviewed Attestations 2 Medical Necessity Statement*: per hospitalist Time Spent in Patient Care: 16 - 35 minutes (>than 50% of time sp ent in counselling and/or direct pt care on unit) . Coding Level of Care Code Acute Code for Chg Fwd Diagnoses Acute renal failure, unspecified acute renal failure type N17.9 Acute renal failure type: unspecified Renal failure chronicity: acute
[2024-08-26 11:38] VITALS: BP 159/69; PULSE 88; RESP 17; TEMP 36.8; O2SAT 93
--- NOTE | 2024-08-26 14:14 | P.PN_ITS ---
Subjective 2 Subjective: Creatinine improved to 1.0. Patient is feeling better. Has had good urine output and Lopez catheter. 1800 cc. Patient states that she cannot walk and feels very weak. We are awaiting physical therapy assessment today. Vitals/I&O/Wt Last Vital Signs Temp 98.2 F 08/26/24 11:38 Pulse 88 08/26/24 11:38 Resp 17 08/26/24 11:38 BP 159/69 08/26/24 11:38 Pulse Ox 93 08/26/24 11:38 O2 Del Method Room Air 08/26/24 11:38 08/25/24 08/26/24 08/26/24 22:59 06:59 14:59 Intake Total 2500 / 2500 900 / 3400 1290 / 1290 Output Total 900 / 900 1000 / 1900 800 / 800 Balance 1600 / 1600 -100 / 1500 490 / 490 Weight last 48 hrs Weight 67.585 kg Weight 68.946 kg Physical Exam 2 Narrative: General: Alert oriented x3, HEENT: Normocephalic, atraumatic, EOMI, patient legally blind. Cardio: Regular rate rhythm, normal S1-S2, Respiratory: Clear to auscultation bilaterally no wheezes no rhonchi GI: Abdomen soft, nontender bowel sounds + Extremities: No edema bilateral lower extremity Urinary Catheter Management: Lopez: Cath Placed During This Visit: yes Reason for Continuing Indwelling Catheter: Required Immobilization for Trauma or Surgery or Anesthesia Urinary Catheter Date of Insertion: 08/25/24 Urinary Catheter Time of Insertion: 20:20 Data 08/26/24 05:27 08/26/24 05:27 Micro: Microbiology 08/25/24 14:00 Blood Culture - Preliminary Blood NEGATIVE TO DATE 08/25/24 14:06 Blood Culture - Preliminary Blood NEGATIVE TO DATE A&P Assessment and plan 1. Anxiety and depression: 2. Hypertension: 3. Hyperlipidemia associated with type 2 diabetes mellitus: 4. Hypothyroidism (acquired): 5. Blindness of both eyes: 6. Dehydration: 7. Acute renal failure, unspecified acute renal failure type: 8. MGUS (monoclonal gammopathy of unknown significance): 9. Diabetic neuropathy: 10. High anion gap metabolic acidosis: 11. Hyperkalemia: Plan: #Acute renal failure #Anuric #Diabetes mellitus insulin-dependent #Nausea vomiting #Hyperlipidemia #Hypothyroidism #Anxiety depression #Peripheral neuropathy #MGUS -Patient is status post 2 normal saline bolus ? Continue on LR at 125 cc/h ? Consult nephrology ? Creatinine 2.3, BUN 83, potassium 5.4 ? Patient anuric. ? We will administer IV fluids and see if she responds to fluid and is able to urinate. ? Delta troponin at 2 hours -3.56. ? UA positive for 3+ bacteria, 1+ protein, 3+ glucose 1+ ketones. ? Will check for serum ketones. There may be possibility of euglycemic DKA however patient is not on SGLT2. She is on a GLP-1 analog dulaglutide however. This may contribute to nausea vomiting. ? Will check ABG ? Anion gap elevated most likely secondary to renal failure. Bicarb 23. ? Potassium 5.4. ? Check TSH, SPEP, UPEP check MEREDITH, serum ketones, complement C3-C4, CPK, hepatitis profile, uric acid ? Check urine sodium ? Heparin SQ twice daily for DVT prophylaxis ? Continue quetiapine, venlafaxine, levothyroxine ? Hold off on insulin at this time secondary to renal failure status. ? Patient is at risk of hypoglycemia. ?Check stat ABG to assess for pH. - Nephrology consulted. Appreciate recommendations ? Place Lopez catheter for accurate output ? Patient does have a history of MGUS. Query myeloma crisis?. Nephrology has repeated labs. Full code DVT prophylaxis: Heparin SQ twice daily 08/26/2024 Seen today. Creatinine is improving. Continue to monitor. Awaiting PT assessment. Stop IV fluids. Will remove Lopez catheter and begin voiding trial. Will check postvoid residuals. Appreciate nephrology recommendations. If patient stays stable and does well plan to discharge home in a.m. PDMP PDMP Reviewed: Not Reviewed Attestations 2 Medical Necessity Statement*: Requires continued monitoring for ATA. Diagnoses Anxiety and depression F41.9; F32.A Hypertension I10 Hyperlipidemia associated with type 2 diabetes mellitus E11.69; E78.5 Hypothyroidism (acquired) E03.9 Blindness of both eyes H54.3 Dehydration E86.0 Acute renal failure, unspecified acute renal failure type N17.9 Acute renal failure type: unspecified Renal failure chronicity: acute MGUS (monoclonal gammopathy of unknown significance) D47.2 Diabetic neuropathy E11.40 High anion gap metabolic acidosis E87.29 Hyperkalemia E87.5
[2024-08-26 16:00] VITALS: BP 151/79; PULSE 93; RESP 18; TEMP 36.6; O2SAT 93
[2024-08-26] MEDS: pantoprazole 40 mg SDV IVP (17:25)
[2024-08-26 20:00] VITALS: BP 162/84; PULSE 91; RESP 16; TEMP 36.8; O2SAT 93
[2024-08-27] VITALS: BP 104/63; PULSE 76; RESP 16; TEMP 36.7; O2SAT 94
[2024-08-27 04:00] VITALS: BP 145/79; PULSE 90; RESP 16; TEMP 36.4; O2SAT 98
[2024-08-27] MEDS: heparin 5,000 unit/mL INJ 1 mL 5000 UNIT SUBCUT (05:27)
[2024-08-27] MEDS: venlafaxine ER (24HR) 75 mg Capsule PO (05:27)
[2024-08-27 05:29] LABS: Alanine Aminotransferase 6 U/L (0-33); Albumin Level 3.6 g/dL (3.5-5.2); Alkaline Phosphatase 86 U/L (35-105); Aspartate Amino Transferase 12 U/L (0-32); Blood Urea Nitrogen 20 mg/dL (8-23); Calcium 8.2 mg/dL (8.5-10.5); Carbon Dioxide 21 mmol/L (22-29); Chloride 99 mmol/L (98-107); Creatinine Clr Calc Pharmacy 100.7313; Globulin 2.7 g/dL (1.3-4.6); Glucose 207 mg/dL (65-115); Magnesium 1.8 mg/dL (1.7-2.3); Osmolality Calculated 289 mOsm/kg (285-295); Sodium 135 mmol/L (136-145); Total Protein 6.3 g/dL (6.6-8.7)
[2024-08-27 05:35] LABS: Anion Gap 19.5 (5-19); Potassium 4.5 mmol/L (3.5-5.1)
[2024-08-27 06:35] LABS: PROTEIN, TOTAL 6.1 g/dL (6.1-8.1)
[2024-08-27 07:53] VITALS: BP 185/75; PULSE 93; RESP 18; TEMP 36.7; O2SAT 94
[2024-08-27] MEDS: ATORVASTATIN 10 MG TABLET PO (08:17)
[2024-08-27 11:55] VITALS: BP 120/81; PULSE 93; RESP 16; TEMP 36.6; O2SAT 96
[2024-08-27 14:34] LABS: KAPPA LIGHT CHAIN, FREE, SERUM 19.2 mg/L (3.3-19.4); KAPPA/LAMBDA LIGHT CHAINS FREE 1.28 (0.26-1.65); LAMBDA LIGHT CHAIN, FREE, SERU 15.0 mg/L (5.7-26.3)
--- NOTE | 2024-08-27 15:07 | P.PN_ITS ---
Subjective 2 Subjective: Phosphorus 2.0 today. Creatinine normal at 0.6. Patient has had decent urine output overnight. She is on IV fluids at this time normal saline 125 cc/h. She has been started last night secondary to her being orthostatic positive. Patient's was quite upset this morning regarding IV fluids. He stated that she was not on IV fluids overnight however the patient was on fluids. Patient states that she does not feel strong enough to go home. She states she cannot even transfer in bed or change her position. Vitals/I&O/Wt Last Vital Signs Temp 97.9 F 08/27/24 11:55 Pulse 93 08/27/24 11:55 Resp 16 08/27/24 11:55 BP 120/81 08/27/24 11:55 Pulse Ox 96 08/27/24 11:55 O2 Del Method Room Air 08/27/24 11:55 08/27/24 08/27/24 08/27/24 06:59 14:59 22:59 Intake Total 937.5 / 2277.5 1452.500 / 1452.500 Output Total 1500 / 1500 Balance 937.5 / 177.5 -47.500 / -47.500 Weight last 48 hrs Weight 65.317 kg Weight 67.585 kg Physical Exam 2 Narrative: General: Alert oriented x3, HEENT: Normocephalic, atraumatic, EOMI, patient legally blind. Cardio: Regular rate rhythm, normal S1-S2, Respiratory: Clear to auscultation bilaterally no wheezes no rhonchi GI: Abdomen soft, nontender bowel sounds + Extremities: No edema bilateral lower extremity Urinary Catheter Management: Lopez: Cath Placed During This Visit: yes, but has since been removed by the nurse Reason for Continuing Indwelling Catheter: Decision to DC Catheter Urinary Catheter Date of Insertion: 08/25/24 Urinary Catheter Time of Insertion: 20:20 Date Urinary Catheter Removed: 08/27/24 Time Urinary Catheter Discontinued: 11:52 Data 08/26/24 05:27 08/27/24 04:35 Micro: Microbiology 08/25/24 14:00 Urine Culture - Final Urine Catheterized 08/25/24 14:00 Blood Culture - Preliminary Blood NEGATIVE TO DATE 08/25/24 14:06 Blood Culture - Preliminary Blood NEGATIVE TO DATE A&P Assessment and plan 1. Anxiety and depression: 2. Hypertension: 3. Hyperlipidemia associated with type 2 diabetes mellitus: 4. Hypothyroidism (acquired): 5. Blindness of both eyes: 6. Dehydration: 7. Acute renal failure, unspecified acute renal failure type: 8. MGUS (monoclonal gammopathy of unknown significance): 9. Diabetic neuropathy: 10. High anion gap metabolic acidosis: 11. Hyperkalemia: Plan: #Acute renal failure #Anuric #Diabetes mellitus insulin-dependent #Nausea vomiting #Hyperlipidemia #Hypothyroidism #Anxiety depression #Peripheral neuropathy #MGUS -Patient is status post 2 normal saline bolus ? Continue on LR at 125 cc/h ? Consult nephrology ? Creatinine 2.3, BUN 83, potassium 5.4 ? Patient anuric. ? We will administer IV fluids and see if she responds to fluid and is able to urinate. ? Delta troponin at 2 hours -3.56. ? UA positive for 3+ bacteria, 1+ protein, 3+ glucose 1+ ketones. ? Will check for serum ketones. There may be possibility of euglycemic DKA however patient is not on SGLT2. She is on a GLP-1 analog dulaglutide however. This may contribute to nausea vomiting. ? Will check ABG ? Anion gap elevated most likely secondary to renal failure. Bicarb 23. ? Potassium 5.4. ? Check TSH, SPEP, UPEP check MEREDITH, serum ketones, complement C3-C4, CPK, hepatitis profile, uric acid ? Check urine sodium ? Heparin SQ twice daily for DVT prophylaxis ? Continue quetiapine, venlafaxine, levothyroxine ? Hold off on insulin at this time secondary to renal failure status. ? Patient is at risk of hypoglycemia. ?Check stat ABG to assess for pH. - Nephrology consulted. Appreciate recommendations ? Place Lopez catheter for accurate output ? Patient does have a history of MGUS. Query myeloma crisis?. Nephrology has repeated labs. Full code DVT prophylaxis: Heparin SQ twice daily 08/26/2024 Seen today. Creatinine is improving. Continue to monitor. Awaiting PT assessment. Stop IV fluids. Will remove Lopez catheter and begin voiding trial. Will check postvoid residuals. Appreciate nephrology recommendations. If patient stays stable and does well plan to discharge home in a.m. 08/27/2024 Patient's creatinine is normalized to 0.6. BUN 20. Will restart home Lantus at 8 units twice daily at this time reduced dosing from home dose. Will stop IV fluids this morning. Will recheck orthostatics towards the afternoon today. Continue to work with physical therapy. Remove Lopez catheter. Begin voiding trial. Talk with tree farmer over the phone. As long as patient can void on her own nephrology service is okay with discharge. PDMP PDMP Reviewed: Not Reviewed Attestations 2 Medical Necessity Statement*: potential dc in morning Diagnoses Anxiety and depression F41.9; F32.A Hypertension I10 Hyperlipidemia associated with type 2 diabetes mellitus E11.69; E78.5 Hypothyroidism (acquired) E03.9 Blindness of both eyes H54.3 Dehydration E86.0 Acute renal failure, unspecified acute renal failure type N17.9 Acute renal failure type: unspecified Renal failure chronicity: acute MGUS (monoclonal gammopathy of unknown significance) D47.2 Diabetic neuropathy E11.40 High anion gap metabolic acidosis E87.29 Hyperkalemia E87.5
--- NOTE | 2024-08-27 15:21 | P.PN_ITS ---
Subjective 2 Subjective: no new c/o Medications: Reviewed: Yes Vitals/I&O/Wt Last Vital Signs Temp 97.9 F 08/27/24 11:55 Pulse 93 08/27/24 11:55 Resp 16 08/27/24 11:55 BP 120/81 08/27/24 11:55 Pulse Ox 96 08/27/24 11:55 O2 Del Method Room Air 08/27/24 11:55 08/27/24 08/27/24 08/27/24 06:59 14:59 22:59 Intake Total 937.5 / 2277.5 1452.500 / 1452.500 Output Total 1500 / 1500 Balance 937.5 / 177.5 -47.500 / -47.500 Weight last 48 hrs Weight 65.317 kg Weight 67.585 kg Physical Exam 2 Narrative: Vital signs noted. Patient is comfortable in bed no apparent distress. HEENT normocephalic atraumatic. Poor vision. Neck is supple no JVP. Lungs are clear to auscultation. Heart is regular no rubs or gallops. Abdomen is soft positive bowel sounds. Extremities no edema. Neuro awake alert oriented x 3. Urinary Catheter Management: Lopez: Cath Placed During This Visit: yes, but has since been removed by the nurse Reason for Continuing Indwelling Catheter: Decision to DC Catheter Urinary Catheter Date of Insertion: 08/25/24 Urinary Catheter Time of Insertion: 20:20 Date Urinary Catheter Removed: 08/27/24 Time Urinary Catheter Discontinued: 11:52 Data 08/26/24 05:27 08/27/24 04:35 Micro: Microbiology 08/25/24 14:00 Urine Culture - Final Urine Catheterized 08/25/24 14:00 Blood Culture - Preliminary Blood NEGATIVE TO DATE 08/25/24 14:06 Blood Culture - Preliminary Blood NEGATIVE TO DATE A&P Assessment and plan 1. Acute renal failure, unspecified acute renal failure type: 59-year-old lady with history of MGUS, blindness, hypothyroidism, hyperlipidemia, type 2 diabetes with diabetic neuropathy. Patient is here with nausea and vomiting and acute kidney injury. 1. Acute kidney injury-no hydronephrosis on CT scan. Baseline creatinine 0.6 mg/dL Urinalysis has a pH of 5, 1+ protein 3+ glucose 1+ ketones. Has 3+ urine bacteria. Patient has underlying urine microalbumin creatinine ratio 65 in July 2024. Renal function improved. Likely prerenal azotemia as the patient did not have hydronephrosis on CT scan or renal ultrasound. Imaging of kidneys reviewed, on renal ultrasound, right kidney 10.7 cm left kidney 11.3 cm no hydronephrosis. Patient had an elevated urine sodium is consistent with ATN however she improved quickly with IV fluids stopped ARB and metformin. off IV fluids cr back to baseline 2. Uncontrolled diabetes. Hemoglobin A1c was 9 last month Treatment as per hospitalist. 3. Mild hyperkalemia has improved potassium is now down to 3.7 4. ketoacidosis , improved 5. History of MGUS will check serum protein electrophoresis immunofixation and free light chains. Follow-up repeat SPEP. As renal function improved this is unlikely to be amyloid or myeloma kidney The patient will need to have her Lopez catheter removed at that time please do a trial of void and ensure that she is urinating well. And renal function is stable. The pt was seen and examined with the aide of a RN using A/V equipment the pt consented to tele-health visit Plan: See above. PDMP PDMP Reviewed: Not Reviewed Attestations 2 Medical Necessity Statement*: per marilynnnv Coding Level of Care Code Acute Code for Chg Fwd Diagnoses Acute renal failure, unspecified acute renal failure type N17.9 Acute renal failure type: unspecified Renal failure chronicity: acute
--- NOTE | 2024-08-27 16:09 | PC.NURSE ---
Upon morning assessment and rounds, pt and were very agitated with electric motor fitter complaining that patients drip was hung late at 530 am. Pt was not ordered a drip of any kind, but was on IV maintenance fluids. Patients requested to speak to charge nurse, manager of software development and doctor. LESLEY Aponte went to bedside to address patients concerns. LESLEY Chacko was also notifed and went to bedside to address patient concerns. This nurse witnessed patients complaining about the doctors ethnicity and asking if we had any [place] Citizen doctors. Patients call light was going off just before 1600. 1 PARACHUTE MENDER was off the unit and the other was doing patient care. This nurse answered patients call light and found her crying and yelling that she was going home and to call her . This nurse asked pt why she was so upset and what had happened. Pt stated I need my blood sugar checked but did not feel like her sugar was neither high, nor low. This nurse explained to her that the PARACHUTE MENDER would be by shortly to do our routine accucheck. This nurse also dialed husbands phone number for her and as soon as he answered pt yelled come get me This nurse went to notify LESLEY Aponte and LESLEY Chacko as well as Dr. Brunson. Dr. Brunson said she would be up to patients room in just a bit. Within a few minutes, Dr. Brunson and this nurse went to patients room to address complaints and pt had pulled out both IVs. This nurse attempted to hold pressure to stop the bleeding and pt refused. Dr. Brunson tried to gather proper information so that pt could have everything necessary for a safe discharge. Pt refused to tell us her primary doctor and also refused orthostatic vitals. Pt then refused to answer any further questions and sat silently. Security called to ensure the safety of all staff and de-escalate the situation. arrived a short time later with a wheelchair and they refused to sign an AMA form when asked, stating, I'm not signing shit. I will have my dope weigh operator contact you Pt wheeled pt out of the room and kept wheeling the wheelchair into items in the room as well as the elevator then yelled Do you want to get on the elevator with me to make sure that I actually leave? Security took the stairs to ensure no further issues upon pt and her leaving.
--- NOTE | 2024-08-27 16:50 | P.DS_ITS ---
Discharge Providers Date of Admission: 08/25/24 17:31 Date of Discharge: August 27, 2024 Attending Provider at Admission: Giulia Brunson MD Attending Provider at Discharge: Giulia Brunson MD Primary Care Provider: Mary Anne Garcia MD Diagnoses at Discharge Discharge Diagnosis 1. Acute renal failure, unspecified acute renal failure type: Reason for Visit Reason for Visit: Weakness Hospital Course Hospital Course Left AGAINST MEDICAL ADVICE. Physical Exam Urinary Catheter Management: Lopez: Cath Placed During This Visit: yes, but has since been removed by the nurse Reason for Continuing Indwelling Catheter: Decision to DC Catheter Urinary Catheter Date of Insertion: 08/25/24 Urinary Catheter Time of Insertion: 20:20 Date Urinary Catheter Removed: 08/27/24 Time Urinary Catheter Discontinued: 11:52 Discharge Data Studies Completed and Pending Completed Studies During Hospitalization Category [place] [id number] Stat Cat Scan 08/25/24 14:42 Completed XR chest 1V portable [id number] Stat Exams 08/25/24 13:43 Completed US abdomen complete* [id number] Stat Ultrasound 08/25/24 18:12 Completed Pending at discharge Category Date Time Status MEREDITH Screen w/ Reflex Routine Lab 08/25/24 20:15 Received Beta-Hydroxybutyrate Routine Lab 08/25/24 21:10 Received Blood Culture Stat Lab 08/25/24 14:00 Results Immunofixation Serum Stat Lab 08/25/24 20:15 Received Serum Protien Electrophoresis [Total Protein Lab 08/25/24 20:15 Results Electrophoresis] Routine Radiology Impressions Chest X-Ray 08/25/24 13:43 IMPRESSION: 1. Mediastinal widening. The appearance could represent a tortuous, ectatic proximal aorta or mediastinal mass. Chest CT evaluation is recommended. 2. No other acute disease identified. Chest/Abdomen/Pelvis CT 08/25/24 14:42 IMPRESSION: 1. No evidence for mediastinal mass. 2. No acute disease in the thorax. 3. Coronary artery calcifications are present. IMPRESSION: 1. Probable gallbladder sludge. 2. No other acute disease in the abdomen or pelvis. Abdomen Ultrasound 08/25/24 18:12 Impression: 1. Negative gallbladder. No stones or sludge. 2. Normal common bile duct. 3. No renal obstruction. 4. Normal liver. Laboratory Results WBC 4.06 10^3/uL (3.29-11.43) 08/26/24 05:27 RBC 3.78 10^6/uL (3.85-5.65) L 08/26/24 05:27 Hgb 10.90 g/dL (11.27-16.99) L 08/26/24 05:27 Hct 33.3 % (36-47) L 08/26/24 05:27 MCV 88.1 fl (85-98) 08/26/24 05:27 MCH 28.8 pg (27-33) 08/26/24 05:27 MCHC 32.7 g/dL (30-55) 08/26/24 05:27 RDW 12.5 % (12.1-15.1) 08/26/24 05:27 Plt Count 234 10^3/cmm (157-399) 08/26/24 05:27 MPV 11.5 fL (7.4-10.4) H 08/26/24 05:27 Neut % (Auto) 53.7 % 08/26/24 05:27 Lymph % (Auto) 36.0 % 08/26/24 05:27 [place] % (Auto) 8.4 % 08/26/24 05:27 Eos % (Auto) 1.2 % 08/26/24 05:27 Baso % (Auto) 0.5 % 08/26/24 05:27 Neut # (Auto) 2.18 10^3/uL (1.8-7.7) 08/26/24 05:27 Lymph # (Auto) 1.5 10^3/uL (0.8-4.8) 08/26/24 05:27 [place] # (Auto) 0.3 10^3/uL (0.2-0.9) 08/26/24 05:27 Eos # (Auto) 0.1 10^3/uL (0.0-0.8) 08/26/24 05:27 Baso # (Auto) 0.0 10^3/uL (0.0-0.1) 08/26/24 05:27 Nucleated RBC % (auto) 0 % 08/26/24 05:27 Nucleated RBCs # 0.0 /100WBC 08/26/24 05:27 Specimen Type Arterial 08/25/24 17:50 Sample Site Brachial, right 08/25/24 17:50 ABG pH 7.38 (7.35-7.45) 08/25/24 17:50 ABG pCO2 34.7 mmHg (35-45) L 08/25/24 17:50 ABG pO2 83.1 mmHg (80.0-100.0) 08/25/24 17:50 ABG PO2/FiO2 Ratio 395 08/25/24 17:50 ABG HCO3 20.5 mmol/L (22-26) L 08/25/24 17:50 ABG O2 Saturation 95.8 08/25/24 17:50 ABG Base Excess -4.1 mmol/L (-2.0-2.0) L 08/25/24 17:50 Rigoberto Test N/a 08/25/24 17:50 A-a O2 Gradient 2.9 mmHg (5-10) L 08/25/24 17:50 Hematocrit 31.5 % (37-47) L 08/25/24 17:50 Hgb O2 Saturation 92.0 % (95-100) L 08/25/24 17:50 Carboxyhemoglobin 2.6 %THgb (0.4-20.1) 08/25/24 17:50 Methemoglobin 1.3 % (0.4-1.5) 08/25/24 17:50 Total Hemoglobin 10.3 g/dL (12-16) L 08/25/24 17:50 Sodium 142.0 mmol/L (131-143) 08/25/24 17:50 Potassium 3.7 mmol/L (3.5-5.0) 08/25/24 17:50 Glucose 72.0 mg/dL (70-115) 08/25/24 17:50 Ionized Calcium 1.1 mmol/L (1.1-1.4) 08/25/24 17:50 O2 Delivery Device Room air 08/25/24 17:50 FiO2 21.0 % 08/25/24 17:50 Card Lacer Jacquard ID Gd 08/25/24 17:50 Sodium 135 mmol/L (136-145) L 08/27/24 04:35 Potassium 4.5 mmol/L (3.5-5.1) 08/27/24 04:35 Chloride 99 mmol/L (98-107) 08/27/24 04:35 Carbon Dioxide 21 mmol/L (22-29) L 08/27/24 04:35 Anion Gap 19.5 (5-19) H 08/27/24 04:35 BUN 20 mg/dL (8-23) 08/27/24 04:35 Creatinine 0.6 mg/dL (0.5-0.9) 08/27/24 04:35 GFR Calculation 102.0 mL/min (90-130) 08/27/24 04:35 Glucose 207 mg/dL (65-115) H 08/27/24 04:35 POC Glucose 155 mg/dL (70-110) H 08/27/24 11:54 Calculated Osmolality 289 mOsm/kg (285-295) 08/27/24 04:35 Lactic Acid 1.5 mmol/L (0.5-2.2) 08/25/24 14:06 Uric Acid 13.2 mg/dL (2.4-5.7) H 08/25/24 12:02 Calcium 8.2 mg/dL (8.5-10.5) L 08/27/24 04:35 Phosphorus 2.0 mg/dL (2.5-4.5) L 08/27/24 04:35 Magnesium 1.8 mg/dL (1.7-2.3) 08/27/24 04:35 Total Bilirubin 0.3 mg/dL (0.15-1.2) 08/27/24 04:35 AST 12 U/L (0-32) 08/27/24 04:35 ALT 6 U/L (0-33) 08/27/24 04:35 Alkaline Phosphatase 86 U/L (35-105) 08/27/24 04:35 Creatine Kinase 67 U/L (26-192) 08/25/24 12:02 Troponin T Baseline 13 ng/L (0-10) H 08/25/24 14:06 Troponin T 120 Minute 9.44 ng/L (0-10) 08/25/24 16:06 Delta Troponin T -3.56 ABS# (0-10) L 08/25/24 16:06 Troponin T Hi Sens 6Hr 8.68 ng/L (0-10) 08/25/24 21:10 Troponin T Hi Sens 6Hr Delta -4.32 ng/L (0-12) L 08/25/24 21:10 Total Protein 6.3 g/dL (6.6-8.7) L 08/27/24 04:35 Albumin 3.6 g/dL (3.5-5.2) 08/27/24 04:35 Globulin 2.7 g/dL (1.3-4.6) 08/27/24 04:35 Procalcitonin 0.15 ng/mL (0-0.5) 08/25/24 14:06 TSH 1.42 uIU/mL (0.27-4.20) 08/25/24 12:02 Urine Color Yellow (Yellow) 08/26/24 00:37 Urine Appearance Clear (CLEAR) 08/26/24 00:37 Urine pH 5.0 (5-7) 08/26/24 00:37 Ur Specific [place] 1.014 (1.005-1.030) 08/26/24 00:37 Urine Protein Negative (Negative) 08/26/24 00:37 Urine Glucose (UA) Negative (Normal) 08/26/24 00:37 Urine Ketones Trace (Negative) 08/26/24 00:37 Urine Blood Trace (Negative) A 08/26/24 00:37 Urine Nitrate Negative (Negative) 08/26/24 00:37 Urine Bilirubin Negative (Negative) 08/26/24 00:37 Urine Urobilinogen 0.2 mg/dL (Negative) 08/26/24 00:37 Ur Leukocyte Esterase Negative (Negative) 08/26/24 00:37 Urine RBC 0-2 /hpf (0-2) 08/26/24 00:37 Urine WBC 0-5 /hpf (0-5) 08/26/24 00:37 Ur Squamous Epith Cells 0-5 /hpf (0-5) 08/26/24 00:37 Amorphous Sediment Not Reportable 08/26/24 00:37 Urine Bacteria None seen /hpf (NONE) 08/26/24 00:37 Hyaline Casts 4.95 /lpf 08/26/24 00:37 Ur Random Sodium 135 mmol/L 08/26/24 00:37 Ur Random Potassium 16 mmol/L 08/26/24 00:37 Ur Random Chloride 141 mmol/L 08/26/24 00:37 Serum Ketones Negative (Negative) 08/25/24 21:10 Complement C3 141 mg/dL (90-180) 08/25/24 12:02 Complement C4 30 mg/dL (10-40) 08/25/24 12:02 Free [place] Light Chains 19.2 mg/L (3.3-19.4) 08/25/24 20:15 Free Lambda Light Chain 15.0 mg/L (5.7-26.3) 08/25/24 20:15 Free [place]ink/Lambda Ratio 1.28 (0.26-1.65) 08/25/24 20:15 Hepatitis C Antibody Non-reactive (Nonreactive) 08/25/24 21:10 Influenza A (PCR) Negative (Negative) 08/25/24 14:16 Influenza Type B (PCR) Negative (Negative) 08/25/24 14:16 RSV (PCR) Negative (Negative) 08/25/24 14:16 SARS-CoV-2 (PCR) Negative (Negative) 08/25/24 14:16 Vitals Last Vital Signs Temp 97.9 F 08/27/24 11:55 Pulse 93 08/27/24 11:55 Resp 16 08/27/24 11:55 BP 120/81 08/27/24 11:55 Pulse Ox 96 08/27/24 11:55 O2 Del Method Room Air 08/27/24 11:55 Discharge Plan Discharge Patient Disposition: Left Against Medical Advice Condition: Stable Prescriptions: No Action glucagon HCl [Glucagon (HCl) Emergency Kit] 1 mg recon soln 1 mg SUBCUT Q20M PRN (Reason: hypoglycemia) Qty: 3 0RF Rx Instructions: until target blood sugar attained insulin glargine [Lantus Solostar U-100 Insulin] 100 unit/mL (3 mL) insulin pen See Rx Instructions .ROUTE .COMPLEX Rx Instructions: Inject 15 units in the morning and 17 units in the evening. Trulicity 4.5 mg/0.5 mL pen injector 4.5 mg SUBCUT .qwk Qty: 2 0RF atorvastatin 10 mg tablet 10 mg PO DAILY Qty: 30 11RF gabapentin 100 mg capsule 100 mg PO TID Qty: 90 5RF levothyroxine 50 mcg tablet 50 mcg PO DAILY Qty: 30 5RF loratadine 10 mg tablet 10 mg PO DAILY Qty: 30 5RF losartan 100 mg tablet 100 mg PO DAILY Qty: 30 5RF quetiapine 50 mg tablet 50 mg PO DAILY Qty: 30 5RF ergocalciferol (vitamin D2) 1,250 mcg (50,000 unit) capsule 1,250 mcg PO .qwk Qty: 4 11RF venlafaxine 75 mg capsule,extended release 24hr 75 mg PO QAM alendronate 70 mg tablet 70 mg PO Q7D metformin 500 mg tablet extended release 24 hr 1,000 mg PO BID insulin lispro 100 unit/mL insulin pen See Rx Instructions .ROUTE .COMPLEX Rx Instructions: INJECT 4 UNITS + SLIDING SCALE FOLLOWS. 200-249 2 UNITS, 250-299 4 UNITS, 300-349 6 UNITS, >350 8 UNITS. SUBCUTANEOUSLY THREE TIMES DAILY WITH MEALS. MAX DAILY AMOUNT 36 UNITS Referrals: Mary Anne Garcia MD [Primary Care Provider, [facility]] Patient Instructions: Opioid Safety, Patient Portal & Bernabe Instructions Discharge Attestations Time Spent in Discharge Care*: less than 30 min Quality Metrics Clinical Quality Measures [ No reported AMI, CVA or VTE this stay] Coding Level of Care Code Acute Code for Chg Fwd Diagnoses Acute renal failure, unspecified acute renal failure type N17.9 Acute renal failure type: unspecified Renal failure chronicity: acute
--- NOTE | 2024-08-27 16:53 | P.MISC_ITS ---
Miscellaneous Note Note: I was called by nursing staff around 3:30 PM that the patient has pulled her IV out and is bleeding and is wanting to leave AMA. She has declined to have orthostatic vital signs done today. I went to evaluate the patient at bedside and to speak to her. When nursing I walked in the room patient was walking around the bed by holding onto the edge of the bed. Her nurse helped her sit down on the edge of the bed. I asked her if there was anything wrong and what I could do to help. Patient refused to talk to me and said it does not matter at this point. Her hand was bleeding from the IV removal. Patient's nurse applied gauze over the hand however patient jignesh her hand back. She did not let nurse apply dressing. I discussed with her regarding her discharge planning and asked her how she was feeling. I tried to address her physical therapy session from today and asked her who her primary care physician was and regarding her follow- up appointments and she said I do not want to see anybody. She stated I will go back to my primary if I would want to. At that point patient stopped responding to questions. I again asked her if there was anything I could do to help in the reason of why she may be upset. Upon patient's refusal of talking to nursing staff and myself I left the room. I did tell the patient that she should follow-up with her primary as soon as possible. Later on I was informed that patient's came in and they left AMA.
[2024-08-27 21:25] LABS: ALPHA 1 GLOBULIN 0.3 g/dL (0.2-0.3); ALPHA 2 GLOBULIN 0.7 g/dL (0.5-0.9); BETA 1 GLOBULIN 0.4 g/dL (0.4-0.6); BETA 2 GLOBULIN 0.3 g/dL (0.2-0.5)
== END 2024-08-27 16:20 | disposition left against medical advice (07) | DRG 683 ==
LOC: ER 16:27 → MEDSURG 17:31
PROVIDERS: Internal Medicine Nephrology; Admitting Provider Internal Medicine; Emergency Provider Emergency Medicine; PCP Family Medicine; Visit Provider Internal Medicine
DX: N17.9 Acute kidney failure, unspecified (principal); E87.20 Acidosis, unspecified; Z53.29 Procedure and treatment not carried out because of patient's decision for other reasons; H54.8 Legal blindness, as defined in USA; F41.9 Anxiety disorder, unspecified; F32.A Depression, unspecified; E11.69 Type 2 diabetes mellitus with other specified complication; E11.40 Type 2 diabetes mellitus with diabetic neuropathy, unspecified; Z79.85 Long-term (current) use of injectable non-insulin antidiabetic drugs; Z79.4 Long term (current) use of insulin; Z79.84 Long term (current) use of oral hypoglycemic drugs; E78.5 Hyperlipidemia, unspecified; E03.9 Hypothyroidism, unspecified; E86.0 Dehydration; D47.2 Monoclonal gammopathy; E87.5 Hyperkalemia; E55.9 Vitamin D deficiency, unspecified
CPT/HCPCS: 36415; 36416; 36600; 51702; 71045; 71250; 74176; 76700; 80051; 80053; 81001; 82009; 82010; 82330; 82436; 82550; 82805; 82962; 83605; 83735; 83883; 84100; 84133; 84145; 84155; 84165; 84300; 84443; 84484; 84550; 85025; 86038; 86160; 86334; 86803; 87040; 87086; 87637; 93005; 94664; 96361; 96372; 96374; 96375; 97110; 97116; 97162; 97530; 99285; J0696; J1644; J1815; J2470; J7030; J7120; J9999